=== PATIENT | female | born 1975 | race Caucasian/White ===

== ENCOUNTER 2020-04-03 12:09 | Emergency (ER) | payer MEDICAID ==
[2020-04-03] MEDS ORDERED: HALOPERIDOL LACTATE INJ 5 MG/1 ML VIAL IM ONE (12:24)
[2020-04-03] MEDS ORDERED: LORAZEPAM INJ 2 MG/1 ML VIAL IM ONE ×2 (12:25→22:29)
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
[2020-04-03] MEDS ORDERED: OLANZAPINE INJ/PF 10 MG SDV IM ONE (12:47)
[2020-04-03 13:28] LABS: APPEARANCE,URINE CLEAR; BILIRUBIN,URINE NEGATIVE (NEGATIVE); COLOR,URINE YELLOW; GLUCOSE, URINE NEGATIVE (NEGATIVE); KETONES,URINE TRACE mg/dL (NEGATIVE); LEUKOCYTE ESTERASE,URINE TRACE (NEGATIVE); NITRITE,URINE NEGATIVE (NEGATIVE); PROTEIN,URINE NEGATIVE (NEGATIVE); UROBILINOGEN,URINE NEGATIVE mg/dL (<2.0)
[2020-04-03 13:35] LABS: ABSOLUTE LYMPHOCYTES (AUTO) 2.5 10^3/uL (0.5-4.7); ABSOLUTE MONOCYTES (AUTO) 0.7 10^3/uL (0.1-1.4); ABSOLUTE NEUT (AUTO) 7.1 10^3/uL (1.7-8.2); BASOPHILS % (AUTO) 0.2 % (0-2); EOSINOPHILS % (AUTO) 0.4 % (0-6); HEMATOCRIT 40.8 % (36.0-47.0); HEMOGLOBIN 13.4 g/dL (12.0-15.5); LYMPHOCYTES % (AUTO) 23.8 % (13-45); MEAN CORPUSCULAR HEMOGLOBIN 29.5 pg (27.0-33.4); MEAN CORPUSCULAR HGB CONC 32.9 g/dL (32.0-36.0); MEAN CORPUSCULAR VOLUME 90 fl (80-97); MONOCYTES % (AUTO) 6.6 % (3-13); PLATELET COUNT 282 10^3/uL (150-450); RED BLOOD COUNT 4.54 10^6/uL (3.72-5.28); RED CELL DISTRIBUTION WIDTH 12.9 % (11.5-14.0); TOTAL CELLS COUNTED % (AUTO) 100 %; WHITE BLOOD COUNT 10.3 10^3/uL (4.0-10.5)
[2020-04-03 13:57] LABS: URINE BARBITURATES SCREEN NEGATIVE; URINE BENZODIAZEPINES SCREEN NEGATIVE; URINE COCAINE SCREEN NEGATIVE; URINE MARIJUANA (THC) SCREEN NEGATIVE; URINE METHADONE SCREEN NEGATIVE; URINE PHENCYCLIDINE SCREEN NEGATIVE
[2020-04-03 14:06] LABS: ALBUMIN 4.2 g/dL (3.5-5.0); ALKALINE PHOSPHATASE 59 U/L (38-126); ANION GAP 6 (5-19); ASPARTATE AMINO TRANSFERASE 25 U/L (14-36); BILIRUBIN,DIRECT 0.1 mg/dL (0.0-0.4); BILIRUBIN,TOTAL 0.6 mg/dL (0.2-1.3); BLOOD UREA NITROGEN 4 mg/dL (7-20); CALCIUM 9.1 mg/dL (8.4-10.2); CARBON DIOXIDE 27 mmol/L (22-30); CHLORIDE 104 mmol/L (98-107); GLUCOSE 108 mg/dL (75-110); POTASSIUM 3.4 mmol/L (3.6-5.0)
[2020-04-03 14:07] LABS: ACETAMINOPHEN < 10 ug/mL (10-30); ALCOHOL < 10 mg/dL (NONE DETECTED); SALICYLATE < 1.0 mg/dL (2.0-20.0)
[2020-04-03] MEDS ORDERED: CHLORPROMAZINE HCL INJ 25 MG/1 ML AMPULE IM ONE (16:53)
[2020-04-03] MEDS ORDERED: BENZTROPINE MESYLATE INJ 2 MG/2 ML AMPULE IM ONE (16:53)
--- NOTE | 2020-04-03 17:25 | PSYCHOLOGICAL NOTE ---
Psych Note - Psych Note Date seen by psych provider: 04/03/20 Time seen by psych provider: 12:24 Psych Note: Reason for Consult: psychosis Patient presented to [facility] ED via EMS and PMO. [place] stopping. Patient presented with pressured speech and flight of ideas, stating she is a female [place] and that she was driving [place] the [place]. Clinician contacted [facility] department ([phone]) and left a message for Power Distribution Engineerjayden Quintero. Patient reportedly is a missing persons from [place]. Clinician attempted to speak with patient; unfortunately the patient immediately became agitated, jumped out of the bed, started banging on the glass door and cussing at staff. Patient stated she was going because "I am not schizophrenic...I am not Bipolar....You are not keeping me here." Clinician was unable to redirect. Medication recommendations per [facility]'s contracted psychiatrist are as follows: Thorazine 50mg IM every 8 hours Cogentin 1mg IM daily Impression/Plan: Patient is recommended for 24 hour petition for evaluation; paperwork is signed and placed in patient's chart. Patient is noted to has probable amphetamines and/or methamphetamines. It is not clear if the patient is under the influence or manic. This patient is not from the local area and her history is not known. It is noted the patient is making interesting comments about not having specific mental health disorders and demanding to see the "shrink." Dr. Velez was consulted on the care and management of this patient; attending physician is in agreement with recommendations and disposition.
--- NOTE | 2020-04-03 17:37 | EKG REPORT ---
SEVERITY:- ABNORMAL ECG - PROBABLE SINUS RHYTHM BASELINE ARTEFACT MAKES INTERPRETATION DIFFICULT : Confirmed by: Kwasi Toledo MD 03-Apr-2020 17:36:50
[2020-04-03] MEDS: CEPHALEXIN 500 MG CAPSULE PO SCH ×2 (21:00)
[2020-04-03] MEDS ORDERED: ZIPRASIDONE MESYLATE INJ/PF 20 MG SDV IM ONE (22:29)
[2020-04-04] MEDS: CEPHALEXIN 500 MG CAPSULE PO SCH ×3 (09:09→18:24)
[2020-04-04] MEDS ORDERED: NICOTINE 21 MG/24 HR PATCH.TD24 TD ONE (10:25)
--- NOTE | 2020-04-04 10:28 | ER Document Report ---
Doctor's Note Notes: 04/04/20 10:25 Patient evaluated and she reports anxiety and is asking for xanax and a nicotine patch. I advised her that I am waiting for recommendations for psych as to what medications to give for her anxiety. Nicotine patch 21mg ordered as patient smokes two packs per day. Patient denies any other complaints at this time. She denies chest pain, shortness of breath and abdominal pain. She is currently being treated with cephalexin for a UTI. PHYSICAL EXAMINATION: GENERAL: Well-appearing, well-nourished and in no acute distress. HEAD: Atraumatic, normocephalic. EYES: sclera anicteric, conjunctiva are normal. ENT: Moist mucous membranes. NECK: Normal range of motion LUNGS: Normal work of breathing HEART: 2+ radial pulses bilaterally EXTREMITIES: no pitting or edema. No cyanosis. NEUROLOGICAL: No focal neurological deficits. Moves all extremities spontaneously and on command. PSYCH: Anxious mood. Normal affect. SKIN: Warm, Dry, normal turgor, no rashes or lesions noted. 04/04/20 13:50 Patient is acting unruly and psychiatric services is asked that I enter medications that were recommended by the psychiatrist yesterday. Thorazine 50 mg IM every 8 hours and Cogentin 1 mg IM daily have been ordered at this time. 04/04/20 19:33 Patient has been placed on full IVC papers. Psych continues to await placement for the patient. 04/04/20 20:00 Patient handoff given to overnight APC.
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
[2020-04-04] MEDS: BENZTROPINE MESYLATE INJ 2 MG/2 ML AMPULE IM SCH (14:43)
[2020-04-04] MEDS: CHLORPROMAZINE HCL INJ 25 MG/1 ML AMPULE IM SCH ×2 (14:44→23:00)
[2020-04-04] MEDS ORDERED: BENZTROPINE MESYLATE 1 MG TABLET PO ONE ×2 (21:47→21:48)
[2020-04-04] MEDS ORDERED: CHLORPROMAZINE HCL 50 MG TABLET PO ONE (22:20)
--- NOTE | 2020-04-04 23:40 | ER Document Report ---
Doctor's Note Notes: 04/04/20 22:20 Was asked by charge nurse Maribel if we could change patient's IM Thorazine to p.o. Order was placed. Also states that it takes was requesting a repeat BMP as the patient had a low BUN. Orders were placed. 04/05/20 00:10 Patient is requesting Motrin for her back. No acute trauma or injury. Order placed. Patient was able to take her Thorazine p.o. 04/05/20 03:00
[2020-04-05] MEDS ORDERED: IBUPROFEN 600 MG TABLET PO ONE (00:09)
[2020-04-05 00:31] LABS: ANION GAP 5 (5-19); BLOOD UREA NITROGEN 12 mg/dL (7-20); CALCIUM 9.3 mg/dL (8.4-10.2); CARBON DIOXIDE 29 mmol/L (22-30); CHLORIDE 102 mmol/L (98-107); GLUCOSE 108 mg/dL (75-110); POTASSIUM 3.9 mmol/L (3.6-5.0)
[2020-04-05] MEDS: CHLORPROMAZINE HCL 50 MG TABLET PO SCH ×3 (06:31→21:32)
[2020-04-05] MEDS: CEPHALEXIN 500 MG CAPSULE PO SCH ×3 (10:37→18:54)
[2020-04-05] MEDS: BENZTROPINE MESYLATE INJ 2 MG/2 ML AMPULE IM SCH ×2 (10:38→21:58)
--- NOTE | 2020-04-05 10:41 | ER Document Report ---
Doctor's Note Notes: 04/05/20 10:40 PHYSICAL EXAMINATION: GENERAL: Appears well, healthy, well-nourished, no acute distress. LUNGS: Equal breath sounds bilaterally and clear to auscultation. No wheezes rales or rhonchi. CARDIOVASCULAR: S1-S2, regular rate, regular rhythm. Radial pulses 2+, normal. ABDOMEN: Normoactive bowel sounds. Soft, nontender, no guarding, no rebound tenderness, and no masses palpated. PSYCH: Normal mood, normal affect. 04/05/20 19:06 Patient had multiple events where she had yelling outbursts. Patient ended up receiving 100 mg of Thorazine to help with her yelling. She then eventually calmed down. Plan is for mental health to find placement.
[2020-04-05] MEDS ORDERED: BENZTROPINE MESYLATE 1 MG TABLET PO SCH (10:45)
[2020-04-05] MEDS ORDERED: CHLORPROMAZINE HCL INJ 25 MG/1 ML AMPULE IM ONE (13:12)
[2020-04-05] MEDS ORDERED: CHLORPROMAZINE HCL INJ 25 MG/1 ML AMPULE ONE (13:23)
--- NOTE | 2020-04-05 16:22 | PSYCHOLOGICAL NOTE ---
Psych Note - Psych Note Date seen by psych provider: 04/05/20 Time seen by psych provider: 12:11 Psych Note: Collateral Information: At 1211 spoke to Erin from [facility]. She identified patient is [place]. Looked up the M[facility] which was [facility]. At 1213 called [facility] ([phone]). Spoke to [facility] [place] first who then transferred to Clinician Susana. She stated there was no information (none of the following: diagnoses, service history, no outpatient or inpatient services) in their system. She noted looking into State Medicaid site and it appeared she just recently transitioned to their county from [facility] which is [facility]' Behavioral M[facility]. At 1222 called [facility]'s Behavioral [facility] ( ). Spoke to Clinician Elyssa. She stated she had no match her their system for patient.
[2020-04-05] MEDS ORDERED: NICOTINE 21 MG/24 HR PATCH.TD24 TD ONE (18:41)
[2020-04-05] MEDS ORDERED: IBUPROFEN 400 MG TABLET PO ONE (18:41)
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
[2020-04-05] MEDS: OLANZAPINE INJ/PF 10 MG SDV IM SCH (22:00)
[2020-04-06] MEDS: CHLORPROMAZINE HCL 50 MG TABLET PO SCH (05:10)
[2020-04-06] MEDS ORDERED: NORMAL SALINE 1000 ML 1,000 ML IV ONE ×2 (10:04→11:37)
[2020-04-06] MEDS ORDERED: CETIRIZINE 5 MG TABLET PO ONE (10:32)
[2020-04-06] MEDS ORDERED: BENZTROPINE MESYLATE 1 MG TABLET PO ONE (10:34)
[2020-04-06] MEDS ORDERED: OLANZAPINE 5 MG TABLET PO ONE (11:05)
[2020-04-06] MEDS: CEPHALEXIN 500 MG CAPSULE PO SCH (11:12)
[2020-04-06] MEDS: OLANZAPINE INJ/PF 10 MG SDV IM SCH (11:13)
[2020-04-06] MEDS: BENZTROPINE MESYLATE INJ 2 MG/2 ML AMPULE IM SCH (11:14)
[2020-04-06 12:15] VITALS: BP 97/47
--- NOTE | 2020-04-06 12:18 | ER Document Report ---
Doctor's Note Notes: 04/06/20 12:14 Patient's vital signs and previous labs, diagnostic images reviewed. Reviewed mental health notes, nurse's notes and previous providers notes. VSS. Pt is in no distress at this time. Denies any SI or HI. Blood pressure was slightly soft today and upper 97/47, a liter of normal saline was given. Repeat blood pressure done manually was 102/54. 69/54 blood pressure I believe was recorded in error because recheck manual blood pressure was 102/54. Patient awake, alert and orientated. General: A&Ox3. Answers questions appropriately. Heart: RRR Lungs: CTAB Psych: Agitated, appears to be hostile A/P: Continue monitoring and rec's per . Normal diet plan: Transfer to to [facility] 04/06/20 12:15
== END 2020-04-06 12:30 ==
LOC: ER 12:09
DX: F22 Delusional disorders (principal); F20.9 Schizophrenia, unspecified; F41.9 Anxiety disorder, unspecified; N39.0 Urinary tract infection, site not specified; Z20.822 Contact with and (suspected) exposure to COVID-19
CPT/HCPCS: 93005; 99285; 96372 ×2; 36415; 87086; 80307 ×4; 84703; 85025; 0241U; 87088; 80048; 80053; 81001; 87186; 93010; J3490 ×5; J0515 ×2; J3230 ×2; J2060; J3486; J7030; C9803